=== PATIENT | female | born 1995 | race Caucasian/White ===

== ENCOUNTER → 2019-08-08 | Outpatient (CLI) | payer BC ==
[2019-08-09 00:14] LABS: Candida species (DNA Probe) Negative (NEGATIVE); G. vaginalis (DNA Probe) Negative (NEGATIVE); T. vaginalis (DNA Probe) Negative (NEGATIVE)
== END | disposition home or self-care (01) ==
LOC: LAB SHORT 09:48 → LAB 09:48
PROVIDERS: Advanced Practice Midwife
DX: N76.0 Acute vaginitis (principal)
CPT/HCPCS: 87480; 87510; 87660

== ENCOUNTER → 2019-08-21 | Outpatient (CLI) | payer BC | END | disposition home or self-care (01) | LOC: LAB EV 09:08 → LAB SHORT 09:08 | DX: N39.0 Urinary tract infection, site not specified (principal) | CPT/HCPCS: 87086 ==

== ENCOUNTER → 2020-02-26 | Outpatient (CLI) | payer BC ==
[2020-02-29 06:08] LABS: CHLAMYDIA TRACHOMATIS, NAA Negative (Negative); NEISSERIA GONORRHOEAE, NAA Negative (Negative)
== END ==
LOC: LAB SHORT 10:49 → LAB 10:49
PROVIDERS: Advanced Practice Midwife
DX: Z36.89 Encounter for other specified antenatal screening (principal); Z34.01 Encounter for supervision of normal first pregnancy, first trimester
CPT/HCPCS: 87491; 87591; G0123

== ENCOUNTER → 2020-08-05 | Outpatient (CLI) | payer SELFPAY | END | disposition home or self-care (01) | LOC: LAB 09:37 → LAB SHORT 09:37 | DX: Z34.03 Encounter for supervision of normal first pregnancy, third trimester (principal) | CPT/HCPCS: 87081; 87653 ==

== ENCOUNTER 2020-09-02 00:07 | Observation (INO) | payer BC ==
--- NOTE | 2020-09-02 08:07 | NUR ---
0715 ASSUMED CARE OF PATIENT. PATIENT WILL CALL WHEN SHE WAKES UP
--- NOTE | 2020-09-02 08:08 | NUR ---
0723 PATIENT AWAKE AND CONTINUES TO BE UNCOMFORTABLE. PLAN OF CARE DISCUSSED WITH PATIENT AND S/O
[2020-09-02] MEDS ORDERED: PRENATAL TABLE1 EAC2 PO (16:43)
== END 2020-09-02 10:15 | disposition home or self-care (01) ==
LOC: OBS 00:07 → BC 00:17 → OBS 07:59 → BC 08:07 → OBS 08:07 → BC 08:07
PROVIDERS: ADMIT Advanced Practice Midwife
DX: O99.02 Anemia complicating childbirth (principal); O99.62 Diseases of the digestive system complicating childbirth; K59.00 Constipation, unspecified; Z3A.40 40 weeks gestation of pregnancy
CPT/HCPCS: 59025; 96372; G0378; J2270; J2550; J7120

== ENCOUNTER 2020-09-02 15:10 | Inpatient (IN) | payer BC ==
[~2020-09-02] VITALS: Wt 77.3 kg
[2020-09-02] MEDS ORDERED: PRENATAL TABLE1 EAC2 PO (16:43)
[2020-09-02 16:55] LABS: BASOPHILS ABSOLUTE AUTO 0.03 K/mm3 (0.00-0.23); BASOPHILS PERCENT AUTO 0 % (0-2); EOSINOPHILS ABSOLUTE AUTO 0.04 K/mm3 (0.00-0.68); EOSINOPHILS PERCENT AUTO 0 % (0-6); Hemoglobin 11.5 g/dL (11.5-16.0); IMMATURE GRAN ABSOLUTE AUTO 0.06 K/mm3 (0.00-0.10); IMMATURE GRAN PERCENT AUTO 0 % (0-1); LYMPHOCYTES ABSOLUTE AUTO 1.25 K/mm3 (0.84-5.20); LYMPHOCYTES PERCENT AUTO 8 % (21-46); MONOCYTES ABSOLUTE AUTO 0.79 K/mm3 (0.16-1.47); MONOCYTES PERCENT AUTO 5 % (4-13); Mean Corpuscular HGB 30.4 pg (26.0-34.0); Mean Corpuscular HGB Conc 32.9 g/dL (31.5-36.5); Mean Corpuscular Volume 93 fL (80-100); Mean Platelet Volume 10.3 fL (9.1-12.4); NEUTROPHILS PERCENT AUTO 85 % (41-73); Platelet Count 248 K/mm3 (150-400); RDW Coefficient Variation 12.7 % (11.7-14.2); RDW Standard Deviation 43.1 fL (35.1-46.3); Red Blood Cell Count 3.78 M/mm3 (3.80-5.20); White Blood Cell Count 14.87 K/mm3 (4.00-11.30)
[2020-09-02 19:14] LABS: Influenza A, PCR Negative (NEGATIVE); Influenza B, PCR Negative (NEGATIVE); Resp Syncytial Virus, PCR Negative (NEGATIVE); SARS-Cov-2 (COVID-19) PCR, MMC Negative (NEGATIVE)
--- NOTE | 2020-09-03 03:51 | NUR ---
RT CALLED AFTER DELIVERY DUE TO BABY HAVING SOME NASAL FLARING AND RETRACTIONS. RN PLACED BABY ON CPAP 5 CM H2O PRIOR TO MY ARRIVAL. UPON MY ARRIVAL RN STATES THERE IS ALREADY MARKED IMPROVEMENT. HELD CPAP FOR ADDITIONAL 5 MINS, BABY APPEARS COMFORTABLE IN NO DISTRESS, RR 60, SPO2 100%, HR 151. RN TO CALL IF RT NEEDED.
--- NOTE | 2020-09-03 09:29 | NUR ---
RN ROUNDED TO HELP W/ . NB HAD 35 MINUTES FEED 1.5 HOURS PREVIOUSLY. INSTRUCT/DEMO WIDENING LATCH, CORRECT POSITIONING, NIPPLE SHAPE AFTER FEEDS, AND HAND EXPRESSION OF COLOSTRUM. NB LATCHED BUT QUICKLEY FELL ASLEEP. INSTRUCTED PT TO ATTEMPT TO LATCH NB EVERY 2-3 HOURS AND HOW TO HAND EXPRESS COLOSTRUM TO NB IF NB NOT LATCHING. DISCUSSED EARLY FEEDING QUES AND NB STOMACH SIZE AND GROWTH DURING THE FIRST 10 DAYS OF LIFE. MOM LOVING W/ NB, DENIES ANY FURTHER QUESTIONS OR CONCERNS. FURTHER SUPPORT OFFERED IF PT DESIRES.
[2020-09-03 12:27] LABS: BASOPHILS ABSOLUTE AUTO 0.05 K/mm3 (0.00-0.23); BASOPHILS PERCENT AUTO 0 % (0-2); EOSINOPHILS ABSOLUTE AUTO 0.03 K/mm3 (0.00-0.68); EOSINOPHILS PERCENT AUTO 0 % (0-6); Hematocrit 33.4 % (33.0-51.0); Hemoglobin 11.1 g/dL (11.5-16.0); IMMATURE GRAN ABSOLUTE AUTO 0.12 K/mm3 (0.00-0.10); IMMATURE GRAN PERCENT AUTO 1 % (0-1); LYMPHOCYTES ABSOLUTE AUTO 1.12 K/mm3 (0.84-5.20); LYMPHOCYTES PERCENT AUTO 5 % (21-46); MONOCYTES ABSOLUTE AUTO 1.26 K/mm3 (0.16-1.47); MONOCYTES PERCENT AUTO 6 % (4-13); Mean Corpuscular HGB 31.4 pg (26.0-34.0); Mean Corpuscular HGB Conc 33.2 g/dL (31.5-36.5); Mean Corpuscular Volume 95 fL (80-100); Mean Platelet Volume 10.5 fL (9.1-12.4); NEUTROPHILS ABSOLUTE AUTO 20.39 K/mm3 (1.96-9.15); NEUTROPHILS PERCENT AUTO 89 % (41-73); Platelet Count 228 K/mm3 (150-400); RDW Coefficient Variation 13.1 % (11.7-14.2); RDW Standard Deviation 44.8 fL (35.1-46.3); Red Blood Cell Count 3.53 M/mm3 (3.80-5.20); White Blood Cell Count 22.97 K/mm3 (4.00-11.30)
--- NOTE | 2020-09-03 16:52 | NUR ---
pt denies needing pain meds, did want another ice diaper,
[2020-09-04] MEDS ORDERED: NEUMANS OINTMENT (08:28)
--- NOTE | 2020-09-04 09:15 | NUR ---
ADINA WANG CALLED INTO [place] AT [facility], PER MASON MOELLER CNM REQUEST
--- NOTE | 2020-09-04 10:31 | NUR ---
HAS RECIEVED FLU VACINE IN OFFICE
--- NOTE | 2020-09-04 12:03 | NUR ---
RN ROUNDED TO HELP W/ . PT STATES SHE HAS GONE WELL SINCE RN ROUNDED YESTERDAY. FURTHER SUPPORT IN THE CLINIC OFFERED IF PT DESIRES. PT DENIES ANY FURTHER QUESTIONS OR CONCERNS.
== END 2020-09-04 10:35 | disposition home or self-care (01) | DRG 807 ==
LOC: OBS 15:10 → BC 15:13 → OBS 15:53 → BC 15:54
PROVIDERS: Obstetrics & Gynecology; ADMIT Advanced Practice Midwife
PROC: 00HU33Z Insertion of Infusion Device into Spinal Canal, Percutaneous Approach (ICD-10-PCS; 2020-09-02)
PROC: 3E0R3BZ Introduction of Anesthetic Agent into Spinal Canal, Percutaneous Approach (ICD-10-PCS; 2020-09-02)
PROC: 10907ZC Drainage of Amniotic Fluid, Therapeutic from Products of Conception, Via Natural or Artificial Opening (ICD-10-PCS; 2020-09-02)
PROC: 10E0XZZ Delivery of Products of Conception, External Approach (ICD-10-PCS; principal; 2020-09-03)
DX: O80 Encounter for full-term uncomplicated delivery (principal); Z37.0 Single live birth; Z3A.40 40 weeks gestation of pregnancy
CPT/HCPCS: 0241U; 36415; 51702; 85025; 86850; 86900; 86901; J1885; J2001; J2210; J2590; J3010; J7120

== ENCOUNTER → 2021-09-04 | Outpatient (CLI) | payer BC ==
[~2021-09-04] MED LIST: NEUMANS OINTMENT; PRENATAL TABLE1 EAC2 PO
[2021-09-06 03:15] LABS: CHLAMYDIA TRACHOMATIS, NAA Negative (Negative)
== END ==
LOC: LAB 17:52 → LAB SHORT 17:52
PROVIDERS: Advanced Practice Midwife
DX: Z11.3 Encounter for screening for infections with a predominantly sexual mode of transmission (principal)
CPT/HCPCS: 87491; 87591

== ENCOUNTER 2022-03-02 04:56 | Inpatient (IN) | payer OTHER ==
[~2022-03-02] VITALS: Ht 170.2 cm; Wt 83.6 kg
[2022-03-02 05:41] LABS: BASOPHILS ABSOLUTE AUTO 0.03 K/mm3 (0.00-0.23); BASOPHILS PERCENT AUTO 0 % (0-2); EOSINOPHILS ABSOLUTE AUTO 0.22 K/mm3 (0.00-0.68); EOSINOPHILS PERCENT AUTO 2 % (0-6); Hematocrit 35.2 % (33.0-51.0); Hemoglobin 11.9 g/dL (11.5-16.0); IMMATURE GRAN ABSOLUTE AUTO 0.13 K/mm3 (0.00-0.10); IMMATURE GRAN PERCENT AUTO 1 % (0-1); LYMPHOCYTES PERCENT AUTO 23 % (21-46); MONOCYTES PERCENT AUTO 8 % (4-13); Mean Corpuscular HGB 31.2 pg (26.0-34.0); Mean Corpuscular HGB Conc 33.8 g/dL (31.5-36.5); Mean Corpuscular Volume 92 fL (80-100); NEUTROPHILS ABSOLUTE AUTO 6.52 K/mm3 (1.96-9.15); NEUTROPHILS PERCENT AUTO 65 % (41-73); Platelet Count 192 K/mm3 (150-400); RDW Coefficient Variation 13.1 % (11.7-14.2); RDW Standard Deviation 44.4 fL (35.1-46.3); Red Blood Cell Count 3.81 M/mm3 (3.80-5.20)
[2022-03-02 06:34] LABS: Influenza A, PCR NEGATIVE (NEGATIVE); Influenza B, PCR NEGATIVE (NEGATIVE); Resp Syncytial Virus, PCR NEGATIVE (NEGATIVE); SARS-Cov-2 (COVID-19) PCR, MMC NEGATIVE (NEGATIVE)
== END 2022-03-03 15:05 | disposition home or self-care (01) | DRG 807 ==
LOC: OBS 04:56 → BC 05:09
PROVIDERS: ADMIT Advanced Practice Midwife
PROC: 10E0XZZ Delivery of Products of Conception, External Approach (ICD-10-PCS; principal; 2022-03-02)
PROC: 3E033VJ Introduction of Other Hormone into Peripheral Vein, Percutaneous Approach (ICD-10-PCS; 2022-03-02)
PROC: 00HU33Z Insertion of Infusion Device into Spinal Canal, Percutaneous Approach (ICD-10-PCS; 2022-03-02)
PROC: 3E0R3NZ Introduction of Analgesics, Hypnotics, Sedatives into Spinal Canal, Percutaneous Approach (ICD-10-PCS; 2022-03-02)
PROC: 10907ZC Drainage of Amniotic Fluid, Therapeutic from Products of Conception, Via Natural or Artificial Opening (ICD-10-PCS; 2022-03-02)
DX: O48.0 Post-term pregnancy (principal); Z37.0 Single live birth; O99.824 Streptococcus B carrier state complicating childbirth; Z20.822 Contact with and (suspected) exposure to COVID-19; Z86.16 Personal history of COVID-19; Z3A.41 41 weeks gestation of pregnancy; Z67.10 Type A blood, Rh positive; Z98.818 Other dental procedure status
CPT/HCPCS: 0241U; 36415; 51702; 85025; 86850; 86900; 86901; A9270; J0290; J1885; J2001; J2210; J2590; J3010; J7120

== ENCOUNTER 2023-09-22 09:13 | Day surgery (SDC) | payer OTHER ==
[~2023-09-22] VITALS: Ht 170.2 cm; Wt 64.0 kg
--- NOTE | 2023-09-22 11:05 | NUR ---
09/22/23 1105 Estela Mota 0.1ML OF EPI (1MG/ML) ADDED TO 20ML OF ROPIVACAINE 0.5% TO MAKE ROPIVACAINE 0.5% WITH EPI 1:100,000 FOR INJECTION AT THE OPSITE BY DR CAMACHO.
--- NOTE | 2023-09-22 12:12 | NUR ---
09/22/23 1212 Jaden Banks IV REMOVED INTACT. SITE WNL.
[2023-09-22 12:19] VITALS: BP 106/70
== END 2023-09-22 12:25 | disposition home or self-care (01) ==
LOC: ORSCSDS 09:13
PROVIDERS: Orthopaedic Surgery
PROC: 0QBB0ZX Excision of Right Lower Femur, Open Approach, Diagnostic (ICD-10-PCS; principal; 2023-09-22 10:40)
DX: D16.21 Benign neoplasm of long bones of right lower limb (principal)
CPT/HCPCS: 88305; 88311; J0171; J0690; J1100; J2250; J2405; J2704; J2795; J3010; J7120

== ENCOUNTER → 2024-07-28 | Outpatient (CLI) | payer OTHER | END | disposition home or self-care (01) | LOC: LAB SHORT 13:28 → LAB 13:28 | PROVIDERS: Advanced Practice Midwife | DX: Z01.419 Encounter for gynecological examination (general) (routine) without abnormal findings (principal) | CPT/HCPCS: G0123 ==